=== PATIENT | female | born 1975 | race Caucasian/White ===

== ENCOUNTER → 2023-05-19 | Outpatient (CLI) | payer BC, SELFPAY ==
[2023-05-19 12:25] LABS: Absolute Lymphocyte Count 2.07 X10^3/uL (0.83-4.51); Absolute Neutrophil Count 4.4 X10^3/uL (2.0-7.7); Basophil# 0.05 X10^3/uL; Basophil% 0.7 % (0-1); Eosinophil# 0.33 X10^3/uL; Eosinophils% 4.5 % (0-5); Hematocrit 49.1 % (37-47); Hemoglobin 15.2 g/dL (12.0-15.0); Lymphocyte # 2.07 X10^3/ul (0.83-4.51); Lymphocyte % 27.9 % (19-41); Mean Corpuscular Hgb 29.6 pg (27.0-32.0); Mean Corpuscular Volume 95.5 fL (81-99); Mean Platelet Vol. 11.4 fl (6.2-12.0); Monocyte# 0.51 X10^3/uL; Monocyte% 6.9 % (0-10); NRBC Flagged by Analyzer 0 % (0-5); Neutrophil % 59.3 % (47-70); Platelet Count 224 K/mm3 (150-450); RBC Distribution Width CV 12.5 % (11.6-14.6); RBC Distribution Width SD 43.8 fl (35.1-43.9); Red Blood Count 5.14 M/mm3 (4.2-5.4); White Blood Count 7.4 K/mm3 (4.4-11.0)
[2023-05-19 13:05] LABS: ALB/GLOB Ratio 0.8 RATIO (0.9-2.4); AST(SGOT) 29 U/L (15-37); Alanine Aminotransfer ALT/SGPT 44 U/L (13-56); Albumin, Serum 3.2 g/dL (3.2-5.0); Alkaline Phosphatase 88 U/L (45-117); Anion Gap 4 (5-15); BUN 17 mg/dL (7-18); Calcium,Total 8.8 mg/dL (8.5-10.1); Chloride 113 mmol/L (98-107); EST Glomerular Filtration Rate 72 mL/min (>60); Est Glom Filt Rate - Afr Amer 87 mL/min (>60); Ferritin 77 ng/mL (8-252); Globulin 3.8 g/dL (2.2-4.2); Glucose 106 mg/dL (74-106); Iron 54 ug/dL (50-170); Iron Binding Capacity,Total 277 ug/dL (250-450); PERCENT IRON SATURATION 19.5 % (15.0-55.0); Potassium 3.7 mmol/L (3.5-5.1); Sodium Level 142 mmol/L (136-145); Thyroid Stim Hormone (TSH) 0.61 uIU/mL (0.358-3.74)
== END | disposition home or self-care (01) ==
LOC: MFPLAB 10:10
PROVIDERS: PCP Family Medicine; Visit Provider Family Medicine
DX: E03.9 Hypothyroidism, unspecified (principal); E61.1 Iron deficiency; R06.02 Shortness of breath
CPT/HCPCS: 36415; 80053; 82728; 83540; 83550; 84443; 85025

== ENCOUNTER → 2023-08-25 | Outpatient (CLI) | payer BC, SELFPAY ==
--- NOTE | 2023-08-25 13:18 | RAD_ITS ---
STUDY: X-RAY - ACUTE ABDOMINAL SERIES REASON FOR EXAM: Female, 47 years old. Abdominal pain. Evaluate for constipation. TECHNIQUE: Single view of the chest. Supine, and erect view(s) of the abdomen were obtained. COMPARISON: None. FINDINGS: The lungs are clear and expanded. Normal size heart. Normal mediastinum and javier. Normal visualized pulmonary arteries. Normal visualized aortic arch and descending thoracic aorta. Normal bowel gas pattern with air seen to the rectosigmoid. Moderate to marked amount of feces in the colon which may represent constipation. The soft tissue structures of the abdomen and pelvis are unremarkable. Malleable plate and screw fixation of the right acetabulum. RAD/Acute Abdomen Inc Chest IMPRESSION: Moderate to marked amount of feces in the colon which may represent constipation. No acute abnormality. Electronically Signed: Alex Hein MD at 15:36 EST ,
--- NOTE | 2023-08-25 13:22 | RAD_ITS ---
STUDY: X-RAY - LUMBAR SPINE REASON FOR EXAM: Female, 47 years old. Acute back pain. TECHNIQUE: 4 view(s) of the lumbar spine were obtained. COMPARISON: None FINDINGS: Normal lumbar lordosis. No substantial scoliosis. Normal alignment of the vertebrae. Diffuse mild lower thoracic and lumbosacral facet sclerosis. Minimal intervertebral disc space narrowing at T12-L1, L1-L2 and L4-5. Cholecystectomy clips. Malleable plate and screw fixation of the right acetabulum. RAD/L/S Spine Min 4 Views IMPRESSION: Mild diffuse lower thoracic and lumbosacral spondylosis with no acute finding Electronically Signed: Alex Hein MD at 15:35 EST ,
[2023-08-25 15:55] LABS: Absolute Lymphocyte Count 2.75 X10^3/uL (0.83-4.51); Absolute Neutrophil Count 5.1 X10^3/uL (2.0-7.7); Basophil% 1.1 % (0-1); Eosinophil# 0.36 X10^3/uL; Eosinophils% 4.1 % (0-5); Hematocrit 52.9 % (37-47); Hemoglobin 15.9 g/dL (12.0-15.0); Lymphocyte # 2.75 X10^3/ul (0.83-4.51); Mean Corp Hgb Conc 30.1 g/dL (32-36); Mean Corpuscular Hgb 29.7 pg (27.0-32.0); Mean Corpuscular Volume 98.7 fL (81-99); Mean Platelet Vol. 11.2 fl (6.2-12.0); Monocyte# 0.52 X10^3/uL; Monocyte% 5.9 % (0-10); NRBC Flagged by Analyzer 0 % (0-5); Neutrophil # 5.12 X10^3/uL (2.7-7.7); Neutrophil % 57.6 % (47-70); Platelet Count 156 K/mm3 (150-450); RBC Distribution Width CV 12.8 % (11.6-14.6); RBC Distribution Width SD 46.2 fl (35.1-43.9); Red Blood Count 5.36 M/mm3 (4.2-5.4); White Blood Count 8.9 K/mm3 (4.4-11.0)
[2023-08-25 17:08] LABS: ALB/GLOB Ratio 0.8 RATIO (0.9-2.4); AST(SGOT) 27 U/L (15-37); Alanine Aminotransfer ALT/SGPT 42 U/L (13-56); Albumin, Serum 3.3 g/dL (3.2-5.0); Alkaline Phosphatase 111 U/L (45-117); Anion Gap 7 (5-15); BUN 24 mg/dL (7-18); BUN/Creat Ratio 24.4 RATIO (10-20); Calcium,Total 8.8 mg/dL (8.5-10.1); Chloride 113 mmol/L (98-107); Creatinine, Serum 0.98 mg/dL (0.55-1.02); EST Glomerular Filtration Rate 64 mL/min (>60); Est Glom Filt Rate - Afr Amer 78 mL/min (>60); Glucose 88 mg/dL (74-106); Potassium 3.8 mmol/L (3.5-5.1); Protein, Total 7.3 g/dL (6.4-8.2); Sodium Level 141 mmol/L (136-145); Thyroid Stim Hormone (TSH) 1.94 uIU/mL (0.358-3.74)
[2023-09-02 08:11] LABS: Thyroglobulin Antibody < 1.0 IU/mL (0.0-0.9); Thyroid Stim Immunoglob 0.12 IU/L (0.00-0.55)
== END | disposition home or self-care (01) ==
PROVIDERS: PCP Family Medicine; Referring Provider Family Medicine; Visit Provider Family Medicine
DX: R10.813 Right lower quadrant abdominal tenderness (principal); M54.9 Dorsalgia, unspecified; E03.9 Hypothyroidism, unspecified
CPT/HCPCS: 36415; 72110; 74022; 80053; 84443; 84445; 85025; 86800

== ENCOUNTER → 2023-10-28 | Outpatient (CLI) | payer BC, SELFPAY ==
--- NOTE | 2023-10-28 12:13 | MRI_ITS ---
STUDY: MRI LUMBAR SPINE WITHOUT CONTRAST REASON FOR EXAM: Female, 47 years old. Low back pain radiates and bilateral hips and unable to stand or sit for long. Numbness begins in the left side to knee and ankle. TECHNIQUE: Standardized fat and water weighted pulse sequences were obtained in the sagittal and axial planes. COMPARISON: Lumbar spine radiographs 08/25/2023. FINDINGS: T11-T12 and T12-L1: (Sagittal only). Normal endplates. Normal disc height, hydration and morphology. No ventral extradural defects. Normal central canal and bilateral intervertebral neural foramina. Normal lumbar lordosis. There is no substantial scoliosis. Normal conus medullaris that terminates at the L1-L2 disc space level. L1-2: Normal endplates. Minimal disc space height narrowing. Prominent ventral extradural defect due to posterior bulging annulus. Normal facet joints. Normal central canal and bilateral lateral recesses. Normal bilateral intervertebral neural foramina. L2-3: Normal endplates. Normal disc height, hydration and morphology. Normal bilateral facet joints. Normal central canal and bilateral lateral recesses. Normal bilateral intervertebral neural foramina. L3-4: Normal endplates. Normal disc height, hydration and morphology. Normal bilateral facet joints. Normal central canal and bilateral lateral recesses. Normal bilateral intervertebral neural foramina. L4-5: Normal endplates. Normal disc height, hydration and morphology. Normal bilateral facet joints. Normal central canal and bilateral lateral recesses. Normal bilateral intervertebral neural foramina. L5-S1: Normal endplates. Minimal disc space height narrowing with disc hydration. Annulus without ventral extradural defect due to presence of ventral epidural fat. Normal facet joints. Normal central canal and bilateral lateral recesses. Normal bilateral intervertebral neural foramina. Normal visualized sacral ala. Normal visualized paraspinous soft tissue structures. MRI/Spine Lumbar (Routine) IMPRESSION: 1. No MRI evidence of lumbar extruded disc fragment, disc protrusion, spinal stenosis or nerve root displacement. 2. No MRI evidence of recent or remote fractures of the lumbar spine. 3. Small L1-2 posterior bulging annulus. Electronically Signed: David Lomeli MD at 14:48 EST ,
--- OUTSIDE RECORDS SUMMARY | 2023-10-28 12:29 | XMS RPT_ITS | CCD ---
Author Name Unknown Address [address] [place] [address] Organization [facility] Care Team Providers Care Manufacturing Lab Technician Name Role Phone Ashley Varma PA-C Unavailable MIRNA HERNANDEZ Unavailable Unavailable Kassidy MENDOZA Unavailable Unavailable CEZAR RAMÍREZ Unavailable Unavailable CEZAR RAMÍREZ Unavailable Unavailable ANTONIO ANGEL Unavailable Unavailable [facility] Unavailable Unavailable Chalo, Marco Primary Care Provider [phone] Marco Isabel MD Primary Care Provider Marco Isabel MD Primary Care Provider Marco Isabel MD Primary Care Provider Marco Isabel MD Primary Care Provider Joel Huston MD Unavailable Marco Isabel MD Primary Care Provider Joel Huston MD Unavailable Marco Isabel MD Primary Care Provider CHALO, CHALON Primary Care Unavailable CHALO, JAYON Attending Unavailable CHALO, CHALON Primary Care Unavailable ERICKA STANLEY Attending Unavailable REICKA STANLEY Referring Unavailable CHALO, CHALON Primary Care Unavailable CHALO, CHALON Primary Care Unavailable CHALO, CHALON Attending Unavailable CHALO, CHALON Referring Unavailable ERICKA STANLEY Attending Unavailable CHALO, CHALON Primary Care Unavailable CHALO, CHALON Primary Care Unavailable LENO TORRES Attending Unavailable CHALO, CHALON Attending Unavailable CHALO, CHALON Primary Care Unavailable MARCO ISABEL Primary Care Unavailable MARCO ISABEL Attending Unavailable MARCO ISABEL Primary Care Unavailable MARCO ISABEL Attending Unavailable Allergies Allergy Classification Reported Allergen(s) Allergy Type Date of Onset Reaction(s) Facility (15 sources) Penicillins Propensity to adverse reactions to drug 0 Swelling, Other (See Comments) [facility] (14 sources) Penicillins Drug Intolerance 0 Swelling, Unknown [facility] (14 sources) Other Propensity to adverse reactions 2 Itching, Swelling, Rash [facility] NEGATED: Highlighted row has been ruled out! (6 sources) Other Propensity to adverse reactions 2 Itching, Swelling, Rash [facility] Medications Current Medications Medication Drug Class(es) Dates Sig (Normalized) Sig (Original) acetaminophen 325 mg / HYDROcodone bitartrate 5 mg oral tablet (4 sources) Opioid Agonist Start: 02-12-2023 End: 02-15-2023 take 1 tablet by mouth every six hours as needed for pain HYDROcodone-acetam inophen ([place]) 5-325 MG tablet Indications: Right rotator cuff tendinitis , Fibromyalgia , Acute midline low back pain with bilateral sciatica Take 1 tablet by mouth every 6 hours as needed for moderate pain (4-6) for up to 3 days. 12 tablet 0 02/12/2023 02/15/2023 Active amitriptyline hydrochloride 25 mg oral tablet (3 sources) Tricyclic Antidepressant Start: 08-08-2021 End: 08-18-2021 take 2 tablets by mouth once daily as needed for pain, then take 1 tablet by mouth at bedtime as needed for pain amitriptyline (ELAVIL) 25 MG tablet Indications: Fibromyalgia Take 2 tablets by mouth nightly as needed for Pain Take 1 tablet by mouth at bedtime 20 tablet 0 08/08/2021 08/18/2021 Active Completed/Discontinued Medications Medication Drug Class(es) Dates Sig (Normalized) Sig (Original) [id number] 200 actuat albuterol 0.09 mg/actuat metered dose inhaler (20 sources) beta2-Adrenergic Agonist Start: 02-03-2023 End: 07-16-2023 take 2 puff(s) by inhalation every six hours as needed albuterol 108 (90 Base) MCG/ACT inhaler Inhale 2 puffs every 6 hours as needed for shortness of breath. 1 each 1 02/03/2023 07/16/2023 Discontinued (Therapy completed) Problems Active Problems Problem Classification Problem Date Documented Da te Episodic/Chronic Asthma (14 sources) Mild intermittent asthma; Translations: [Mild intermittent asthma, uncomplicated] Onset: 06-06-2022 07-19-2022 Chronic E Codes: Fall (2 sources) Fall Onset: 02-10-2023 Headache; including migraine (20 sources) Migraine without aura, not refractory ; Translations: [Migraine without aura, not intractable, without status migrainosus] Onset: 05-07-2021 05-07-2021 Chronic Nutritional deficiencies (20 sources) Vitamin D deficiency; Translations: [Vitamin D deficiency, unspecified] Onset: 05-07-2021 05-07-2021 Chronic Nutritional deficiencies (19 sources) Deficiency of multiple nutrient elements; Translations: [Deficiency of multiple nutrient elements] Onset: 09-05-2022 Episodic Other connective tissue disease (1 source) Biceps tendinitis; Translations: [Bicipital tendinitis, left shoulder] Onset: 02-16-2018 02-16-2018 Episodic Other connective tissue disease (1 source) Tendinitis of right rotator cuff; Translations: [Other shoulder lesions, right shoulder] Episodic Other gastrointestinal disorders (17 sources) Intestinal malabsorption; Translations: [Intestinal malabsorption, unspecified] Onset: 09-05-2022 Chronic Other gastrointestinal disorders (2 sources) Intestinal malabsorption, unspecified; Translations: [Intestinal malabsorption, unspecified] Onset: 09-05-2022 Chronic Other hematologic conditions (3 sources) Abnormality of albumin; Translations: [Other nonspecific findings on examination of blood] 09-01-2023 Episodic Other inflammatory condition of skin (2 sources) Intertrigo; Translations: [Erythema intertrigo] Episodic Other lower respiratory disease (1 source) Productive cough ; Translations: [Cough] Episodic Other nervous system disorders (2 sources) Other chronic pain; Translations: [Other chronic pain] Onset: 02-12-2023 Chronic Other non-traumatic joint disorders (1 source) Ankle pain; Translations: [Pain in left ankle and joints of left foot] Episodic Other non-traumatic joint disorders (3 sources) Hip pain; Translations: [Pain in right hip] Episodic Other nutritional; endocrine; and metabolic disorders (20 sources) Morbid obesity; Translations: [Morbid (severe) obesity due to excess calories] Onset: 11-14-2021 11-14-2021 Chronic Other nutritional; endocrine; and metabolic disorders (20 sources) Body mass index 40+ - severely obese; Translations: [Morbid (severe) obesity due to excess calories] Onset: 09-03-2022 Resolved: 12-30-2022 Chronic Other nutritional; endocrine; and metabolic disorders (2 sources) Obesity caused by energy imbalance; Translations: [Other obesity due to excess calories] 07-16-2023 Chronic Other nutritional; endocrine; and metabolic disorders (2 sources) Other obesity due to excess calories; Translations: [Other obesity due to excess calories] Onset: 08-31-2023 Chronic Other nutritional; endocrine; and metabolic disorders (2 sources) Body mass index (BMI) 33.0-33.9, adult; Translations: [Body mass index (BMI) 33.0-33.9, adult] Onset: 08-31-2023 Chronic Other nutritional; endocrine; and metabolic disorders (2 sources) Morbid (severe) obesity due to excess calories; Translations: [Morbid (severe) obesity due to excess calories (HCC)] Onset: 10-07-2022 Chronic Other nutritional; endocrine; and metabolic disorders (2 sources) Body mass index (BMI) 40.0-44.9, adult; Translations: [Body mass index (BMI) 40.0-44.9, adult (HCC)] Onset: 10-07-2022 Chronic Other nutritional; endocrine; and metabolic disorders (1 source) History of iron deficiency; Translations: [Personal history of other endocrine, nutritional and metabolic disease] Episodic Residual codes; unclassified (20 sources) Obstructive sleep apnea syndrome; Translations: [Obstructive sleep apnea (adult) (pediatric)] Onset: 11-19-2021 11-19-2021 Chronic Residual codes; unclassified (2 sources) Obstructive sleep apnea (adult) (pediatric); Translations: [Obstructive sleep apnea (adult) (pediatric)] Onset: 07-19-2022 Chronic Thyroid disorders (20 sources) Acquired hypothyroidism; Translations: [Hypothyroidism, unspecified] Onset: 11-19-2021 Chronic Unclassified (1 source) Unknown / UNK(Unknown) Onset: 04-06-2017 Unclassified (1 source) Acute cough; Translations: [Acute cough] Onset: 10-29-2022 Past or Other Problems Problem Classification Problem Date Documented Da te Episodic/Chronic Abdominal pain (15 sources) Right upper quadrant pain; Translations: [Right upper quadrant pain] Onset: 05-07-2021 Resolved: 03-14-2022 05-07-2021 Episodic Coma; stupor; and brain damage (20 sources) Daytime somnolence; Translations: [Somnolence] Onset: 11-19-2021 11-19-2021 Episodic E Codes: Fall (3 sources) Fall; Translations: [Unspecified fall, initial encounter] Onset: 02-12-2023 Episodic Headache; including migraine (20 sources) Headache; Translations: [Headache] Onset: 05-07-2021 05-07-2021 Episodic Inflammatory diseases of female pelvic organs (2 sources) Cyst of Bartholin's gland; Translations: [CYST OF BARTHOLIN'S GLAND] Onset: 04-03-2017 Episodic Malaise and fatigue (4 sources) Fatigue; Translations: [Other fatigue] Onset: 07-16-2023 07-16-2023 Episodic Miscellaneous mental health disorders (20 sources) Acute insomnia; Translations: [Adjustment insomnia] Onset: 08-27-2021 08-27-2021 Episodic Other connective tissue disease (20 sources) Fibromyalgia; Translations: [Fibromyalgia] Onset: 05-07-2021 05-07-2021 Episodic Other connective tissue disease (2 sources) Other shoulder lesions, right shoulder; Translations: [Other shoulder lesions, right shoulder] Onset: 02-12-2023 Episodic Other connective tissue disease (1 source) Fibromyalgia; Translations: [Fibromyalgia] Onset: 07-19-2022 Episodic Other non-traumatic joint disorders (5 sources) Pain in right knee; Translations: [Pain in joint, lower leg] Onset: 02-12-2023 Episodic Other non-traumatic joint disorders (2 sources) Pain in right hip; Translations: [Pain in right hip] Onset: 02-12-2023 Episodic Other non-traumatic joint disorders (2 sources) Pain in left hip; Translations: [Pain in left hip] Onset: 02-12-2023 Episodic Other non-traumatic joint disorders (2 sources) Pain in left knee; Translations: [Pain in left knee] Onset: 02-12-2023 Episodic Other upper respiratory disease (2 sources) Other specified disorders of nose and nasal sinuses; Translations: [Other specified disorders of nose and nasal sinuses] Onset: 10-29-2022 Episodic Other upper respiratory infections (4 sources) Acute upper respiratory infection, unspecified; Translations: [Acute pharyngitis, unspecified] Onset: 10-29-2022 Episodic Spondylosis; intervertebral disc disorders; other back problems (20 sources) Radiculopathy, cervical region; Translations: [Backache] Onset: 02-16-2018 02-16-2018 Episodic Unclassified (1 source) Problem Unclassified (1 source) VAGINAL PAIN, FEVER, SOB //NO DX Onset: 04-06-2017 Unclassified (1 source) Acute cough; Translations: [Acute cough] Onset: 10-29-2022 Results Test Name Value Interpretation Reference Range Facil ity Vital Signs Date Time Vital Sign Value Performing Clinician Faci lity 07-16-2023 13:29-0400 Body height 174.6 cm Ericka Stanley DIRECTOR OF LABOR AND DELIVERY Work Phone: [facility] Encounters Encounter Date Encounter Type Care Provider Facility Start: 08-31-2023 Telephone encounter [address]ahi nance RD Work Phone: [facility] Procedures Date Procedure Procedure Detail Performing Clinician Start: 08-31-2023 Lipid 1996 panel - Serum or Plasma Ericka Stanley DIRECTOR OF LABOR AND DELIVERY Work Phone: Start: 02-12-2023 Radiologic examination knee 1/2 views Marco Isabel MD Work Phone: Start: 10-07-2022 Lipid 1996 panel - Serum or Plasma Ericka Stanley DIRECTOR OF LABOR AND DELIVERY Work Phone: Start: 10-07-2022 Thyrotropin [Units/volume] in Serum or Plasma Ericka Stanley DIRECTOR OF LABOR AND DELIVERY Work Phone: Start: 07-26-2022 History of cholecystectomy History of cholecystectomy Ericka Stanley DIRECTOR OF LABOR AND DELIVERY Work Phone: Start: 02-07-2022 [facility] ENDOSCOPY REPORT Physician Generic Start: 08-10-2021 Assay of ferritin Marco Isabel MD Work Phone: Start: 06-26-2021 Dup-scan xtr veins complete bilateral study Marco Isabel MD Work Phone: Start: 06-22-2021 Radiologic exam chest 2 views Marco Isabel MD Work Phone: Start: 02-26-2021 Radiologic examination ankle 2 views Solo Friedman MD Work Phone: Start: 02-16-2018 End: 02-16-2018 Blood pressure within normal parameters - no follow-up required Ashley Varma PA-C Work Phone: Start: 02-16-2018 End: 02-16-2018 BMI outside of normal parameters - no follow-up plan/reason not given Ashley Varma PA-C Work Phone: Start: 02-16-2018 End: 02-16-2018 Current medications documented Ashley Varma PA-C Work Phone: Start: 02-16-2018 End: 02-16-2018 Drain/inject, joint/bursa Ashley smith PA-C Work Phone: Start: 02-16-2018 End: 02-16-2018 Pain assessment documented as positive - no follow-up/reason not given Ashley Varma PA-C Work Phone: Start: 02-16-2018 End: 02-16-2018 Tobacco non-user Ashley Varma PA-C Work Phone: Plan of Treatment Date Care Activity Detail Author Start: 12-27-2040 Pneumococcal 0-64 years Vaccine (2 of 2 - PPSV23) Pneumococcal 0-64 years Vaccine (2 of 2 - PPSV23) [facility] Start: 2035 RSV Immunization aged 60 or older (1 - 1-dose 60+ series) RSV Immunization aged 60 or older (1 - 1-dose 60+ series) [facility] Start: 08-31-2028 Lipid panel Lipid Panel [facility] Start: 10-07-2027 Lipid panel Lipid Panel [facility] Start: 12-27-2025 Zoster Vaccines (1 of 2) Zoster Vaccines (1 of 2) [facility] Start: 03-03-2024 End: 03-03-2024 Patient encounter procedure 03/03/2024 8:30 AM EDT Office Visit [facility] [address] [place] [id number] Claribel Orourke MD [address] [place] [address] [facility] Start: 12-15-2023 End: 07-16-2024 25-hydroxyvitamin D3 [Mass/volume] in Serum or Plasma Vitamin D Deficiency Screening (Vit D 25) Lab Routine Deficiency of multiple nutrient elements Intestinal malabsorption, unspecified type Hypothyroidism, unspecified type NEL (obstructive sleep apnea) Class 1 obesity due to excess calories with serious comorbidity and body mass index (BMI) of 33.0 to 33.9 in adult Expected: 12/15/2023 (Approximate), Expires: 07/16/2024 [facility] Immunizations Immunization Date Immunization Notes Care Provider Fa cili 08-08-2021 influenza, injectabl e, quadrivalent, preservative free Marco Isabel MD Work Phone: [facility] 08-08-2021 pneumococcal polysaccharide vaccine, 23 valent Marco Isabel MD Work Phone: [facility] Work Phone: 08-08-2021 influenza virus vaccine, unspecified formulation Ericka Stanley NP Work Phone: [facility] 03-05-2021 COVID-19, Pfizer Pur ple top, DILUTE for use, 12+ yrs, 30mcg/0.3mL dose Joel Huston MD Work Phone: [facility] Work Phone: 02-02-2021 COVID-19, Pfizer Pur ple top, DILUTE for use, 12+ yrs, 30mcg/0.3mL dose Joel Huston MD Work Phone: [facility] 08-24-2019 influenza, injectabl e, quadrivalent, preservative free Marco Isabel MD Work Phone: [facility] 11-08-2018 hepatitis A vaccine, adult dosage Marco Isabel MD Work Phone: [facility] Work Phone: 11-08-2018 hepatitis A and hepatitis B vaccine Ericka Stanley DIRECTOR OF LABOR AND DELIVERY Work Phone: [facility] 08-04-2018 influenza, injectabl e, quadrivalent, preservative free Marco Isabel MD Work Phone: [facility] Work Phone: No information available. Angelika Garcia [facility] Work Phone: Payers Date Payer Category Payer Unknown BCBS [place] P PO [id number] 2020-Present [address] [place] [address] [id number] 2019 Unknown ANTHEM BLUE CARD PPO [id number] 2019-Present PPO [id number] 2019 Unknown [id number] 2019 Unknown ANTHEM BLUE CROS S ANTHEM BLUE CROSS [id number] 2019-Present [address] [place] [address] Commercial [id number] 2013 Unknown [id number] Social History Date Type Detail Facility Start: 02-26-2021 End: 07-26-2022 Tobacco smoking status NJIS Never smoker [facility] Start: 02-26-2021 End: 07-26-2022 Tobacco use and exposure Never used [facility] Work Phone: Start: 02-26-2021 Alcohol intake Lifetime non-d rafi (finding) [facility] Start: 02-26-2021 End: 05-07-2021 History SDOH Alcohol Frequency 1 [facility] Start: 1975 Sex Assigned At Not on file C [facility] Start: 11-18-2021 End: 02-12-2023 Exposure to SARS-CoV-2 (event) Not sure [facility] Start: 06-19-2021 End: 07-16-2023 Alcohol intake Current drinker of alcohol (finding) [facility] Work Phone: Start: 05-07-2021 History SDOH Financial 5 [facility] Work Phone: Start: 05-07-2021 History SDOH Transport Med 2 [facility] Work Phone: Start: 05-07-[address] [facility] Work Phone: Exposure to SARS-CoV-2 (event) Yes [facility] Start: 11-19-2021 End: 05-07-2022 Alcohol intake Ex-drinker (finding) [facility] Work Phone: Start: 1975 Sex Assigned At Female S [facility] Start: 08-26-2022 Alcohol Comment once or twice a year [facility] Start: 12-31-2022 End: 07-16-2023 History of Social function [facility] Start: 12-31-2022 End: 07-16-2023 Tobacco use panel [facility] Start: 07-24-2022 Sexual orientation Heterosexual (fin ding) [facility] NEGATED: Highlighted rowStart: 02-16-2018 End: 02-16-2018 Alcohol use Never smoker [facility] Work Phone: NEGATED: Highlighted rowStart: 02-16-2018 End: 02-16-2018 Details of drug misuse behavior DRUG USE No [facility] Work Phone: NEGATED: Highlighted rowStart: 02-16-2018 End: 02-16-2018 Employment detail OCCUPATION#[employer] [facility] Work Phone: NEGATED: Highlighted rowStart: 02-16-2018 End: 02-16-2018 Assertion Never smoker [facility] Work Phone: Medical Equipment Procedure Code Equipment Code Equipment Origin al Text Equipment Identifier Dates Clip Internal Ligaclip Extra Titanium Medium Large L5.5 Mm Ligate Sterile Latex Free Disposable Green - [id number] Start: 09-03-2022 Clinical Notes 01-24-2021 to 09-09-2023 Telephone Encounter - Ericka Stanley NP - 09/09/2023 1:06 PM ESTTelephone Encounter - Ericka Stanley NP - 09/09/2023 1:06 PM ESTTelephone Encounter - Anahi Vasquez RD - 09/09/2023 1:03 PM EST Note Date & Type Note Facility 09-09-2023 Telephone encounter Note Noted. [facility] 09-09-2023 Miscellaneous Notes Noted. RD has made multiple attempts to reach patient regarding low zinc. Patient has noted she has been sick in [employer] message and has had a decreased appetite, so not eating as frequently. RD will await patient response and also discuss in more detail at next OV on 09/15/23. Attempted to call patient regarding low zinc, however went to voicemail. Left message for patient to call back. Labs (08/31/23) Zinc: 53.3 (L) Sending [employer] message to patient. Spoke with patient, she is rescheduled on 09/15 with TB Orders signed. FDT- Please reschedule 12 month POV. Spoke to patient over MyChart regarding low albumin. Patient reports she hurt her back, and it is making her feel too sick to eat. She also reports she has her 12M POP appointment today and needs to reschedule. RD encouraged patient consider staying hydrated and still work on eating small amounts of food frequently to keep energy levels up, as well as help with low albumin. Discussed trying protein shakes as well as work on eating something light every 2-3 hours, such as thai yogurt as an example. Orders pending to recheck lab. Notifying help desk team leader to reschedule appointment. DOS 09/03/2022 LRYGB TB Next OV 09/01/23 for 12M POP Labs (08/31/23) Albumin: 3.4 (L) Total protein: 7.0 (WNL) B1, zinc pending Attempted to call patient regarding labs, however went to voicemail. Left message for patient to call back. Will also send a MyChart message. ----- Message from Ericka Stanley NP sent at 08/31/2023 1:54 PM EST ----- Hi! Low albumin documented in this encounter [facility] 09-09-[address] has made multiple attempts to reach patient regarding low zinc. Patient has noted she has been sick in MyChart message and has had a decreased appetite, so not eating as frequently. RD will await patient response and also discuss in more detail at next OV on 09/15/23. [facility] 09-04-2023 Telephone encounter Note Attempted to call patient regarding low zinc, however went to voicemail. Left message for patient to call back. [facility] 09-04-2023 Miscellaneous Notes Attempted to call patient regarding low zinc, however went to voicemail. Left message for patient to call back. Labs (08/31/23) Zinc: 53.3 (L) Sending [employer] message to patient. Spoke with patient, she is rescheduled on 09/15 with TB Orders signed. FDT- Please reschedule 12 month POV. Spoke to patient over MyChart regarding low albumin. Patient reports she hurt her back, and it is making her feel too sick to eat. She also reports she has her 12M POP appointment today and needs to reschedule. RD encouraged patient consider staying hydrated and still work on eating small amounts of food frequently to keep energy levels up, as well as help with low albumin. Discussed trying protein shakes as well as work on eating something light every 2-3 hours, such as thai yogurt as an example. Orders pending to recheck lab. Notifying help desk team leader to reschedule appointment. DOS 09/03/2022 LRYGB TB Next OV 09/01/23 for 12M POP Labs (08/31/23) Albumin: 3.4 (L) Total protein: 7.0 (WNL) B1, zinc pending Attempted to call patient regarding labs, however went to voicemail. Left message for patient to call back. Will also send a MyChart message. ----- Message from Ericka Stanley NP sent at 08/31/2023 1:54 PM EST ----- Hi! Low albumin documented in this encounter [facility] 09-02-2023 Telephone encounter Note Labs (08/31/23) Zinc: 53.3 (L) Sending MyChart message to patient. [facility] 09-01-2023 Telephone encounter Note Spoke with patient, she is rescheduled on 09/15 with TB [facility] 09-01-2023 Miscellaneous Notes Spoke with patient, she is rescheduled on 09/15 with TB Orders signed. FDT- Please reschedule 12 month POV. Spoke to patient over MyChart regarding low albumin. Patient reports she hurt her back, and it is making her feel too sick to eat. She also reports she has her 12M POP appointment today and needs to reschedule. RD encouraged patient consider staying hydrated and still work on eating small amounts of food frequently to keep energy levels up, as well as help with low albumin. Discussed trying protein shakes as well as work on eating something light every 2-3 hours, such as thai yogurt as an example. Orders pending to recheck lab. Notifying help desk team leader to reschedule appointment. DOS 09/03/2022 LRYGB TB Next OV 09/01/23 for 12M POP Labs (08/31/23) Albumin: 3.4 (L) Total protein: 7.0 (WNL) B1, zinc pending Attempted to call patient regarding labs, however went to [place]. Left message for patient to call back. Will also send a [employer] message. ----- Message from Ericka Stanley NP sent at 08/31/2023 1:54 PM EST ----- Hi! Low albumin documented in this encounter [facility] 09-01-2023 Telephone encounter Note Orders signed. FDT- Please reschedule 12 month POV. [facility] 09-01-2023 Telephone encounter Note Spoke to patient over [employer] regarding low albumin. Patient reports she hurt her back, and it is making her feel too sick to eat. She also reports she has her 12M POP appointment today and needs to reschedule. RD encouraged patient consider staying hydrated and still work on eating small amounts of food frequently to keep energy levels up, as well as help with low albumin. Discussed trying protein shakes as well as work on eating something light every 2-3 hours, such as thai yogurt as an example. Orders pending to recheck lab. Notifying help desk team leader to reschedule appointment. [facility] 08-31-2023 Telephone encounter Note DOS 09/03/2022 LRYGB TB Next OV 09/01/23 for 12M POP Labs (08/31/23) Albumin: 3.4 (L) Total protein: 7.0 (WNL) B1, zinc pending Attempted to call patient regarding labs, however went to voicemail. Left message for patient to call back. Will also send a Filtect message. [facility] 08-31-2023 Telephone encounter Note ----- Message from Ericka Stanley NP sent at 08/31/2023 1:54 PM EST ----- Hi! Low albumin [facility] 07-16-2023 Note Addended by: MARCI POOLE on: 08/31/2023 08:28 AM Modules accepted: [facility] 07-16-2023 Note [facility]ATR[facility] CARE [facility] [place] PROGRESS NOTE POST WEIGHT LOSS SURGERY FOLLOW UP Patient: Jorge Frost Service Date: 07/16/2023 Patient is 7 month(s) s/p RnY Gastric Bypass Today's Metrics: Post-Surgical Weight Loss Date: 07/16/23 Height: 5' 8.75 (174.6 cm) Weight: 223 lb (101 kg) BMI: 33.17 Weight Change: -46.4 lbs Total Weight Change: -98.4 lbs % EBWL: 56% Comments: 7M Pre-op Weight Metrics: Post-op Weight Metrics: %EBWL: % EBWL: 56% Weight Change Since Last Visit: Weight Change: -46.4 lbs Weight Change from Highest Pre-op Weight: Total Weight Change: -98.4 lbs Patient has the following questions: None Reported Pain: Patient rates pain on scale 0-10 as: 0 Exercise Compliance: Exercising: yes If yes: Type: walking Times per week: 7 Min per session: 30 Falls Risk Assessment Patient does not take medications which affect BP or mental status Patient does not have newly prescribed or changed dosage of medications within past 30 days which affect BP or mental status Patient has not fallen in the past 2 months Patient does not demonstrate unsteady gait Patient uses the following ambulatory assistive devices: none Patient states the presence of the following traits which increases risk of fall: none Patient is not on home O2 Labs Completed: no - If NO, patient instructed to get labs drawn today or KRISHAN If YES: Labs completed at [facility]? N/A If yes see Labs Tab Will get lab work done 07/17/2023 Labs completed at Non-[facility] facility? no If yes see Encounters Tab - Orders only - Historical Provider - Date: Completed by: Portia Epps LPN [facility] 07-16-2023 History of Presen t illness Narrative Images from the original note were not included. HPI, PHYSICAL EXAMINATION & PLAN POST-OP HPI: Patient here today for 6 month post-weight loss surgery follow up The patient is feeling fairly well. Denies nausea, vomiting, dysphagia, or any GERD Sx. Currently is on any PPI. Patient states diet and exercise is going well. Currently is eating 65-75 gm/day protein, and is compliant with prescribed multivitamins and supplements. Reports fatigue- may be r/t long shifts. Drinking around 50-60 oz daily. Eating 4-5x daily. Review of Systems Constitutional: Positive for fatigue. Negative for fever. HENT: Negative for congestion, rhinorrhea and trouble swallowing. Respiratory: Negative for cough, chest tightness and shortness of breath. Cardiovascular: Negative for chest pain, palpitations and leg swelling. Gastrointestinal: Negative for abdominal distention, abdominal pain, blood in stool, constipation, diarrhea and nausea. Genitourinary: Negative for dysuria, flank pain, frequency and urgency. Musculoskeletal: Negative for arthralgias, back pain and myalgias. Skin: Negative for color change and rash. Neurological: Negative for light-headedness and headaches. Psychiatric/Behavioral: Negative for dysphoric mood. The patient is not nervous/anxious. Vital signs are stable. Labs were Not completed. All labs were: pended Physical Examination: BP 105/70 Pulse 51 Temp 36.1 C (97 F) Resp 16 Ht 5' 8.75 (1.746 m) Comment: BCC Wt 223 lb (101 kg) BMI 33.17 kg/m General: This patient is awake, alert, and oriented, and is in no apparent distress. Cardiac: Regular rate and rhythm without evidence of murmur. Respiratory: Clear to auscultation bilaterally. Abdomen: Obese, soft, non-tender, non-distended without masses/ No evidence of abdominal hernia / Incisions consistent with previous surgeries. Head and Neck: Obese, normocephalic and atraumatic/soft and supple, no lymphadenopathy or obvious bruits. Extremities: No cyanosis, clubbing or edema/ No calf tenderness/No restrictions of movement, is ambulatory without assistance. Neurological: Intact x 4 extremities, no focal deficits notes. Skin: No rashes or lesions noted. Rectal: Deferred Plan: 1). Discussed stopping PPI with patient. Patient is call if any mentioned symptoms return: persistent nausea all day, epigastric pain, pain radiating under either side of rib cage or pain in the middle of their back that is not improving. 2). Labs: pending 3). Diet and Exercise: RD discussed diet with patient during office visit. 4). Follow up at 12 month office visit with standard labs. 5). Psych concerns: no 6). If patient is a woman of childrearing age- 18-50. We discussed the importance of contraception during the first 12-18 months post op, and we discussed that fertility will increase following the procedure. Advised patient to discuss with her OBGYN regarding contraception. Patient counseled with good understanding verbalized. 7). Weight loss: Post-op Weight Metrics: %EBWL: % EBWL: 56% Weight Change Since Last Visit: Weight Change: -46.4 lbs Weight Change from Highest Pre-op Weight: Total Weight Change: -98.4 lbs 8). NEL- Continue CPAP use at HS. Continue routine follow up with Pulmonology. 9). Fatigue- To have full set of lab work done. Discussed many potential causes for this, including Hypothyroidism, iron deficiency, NEL, etc. Will review labs and make adjustments to supplement regimen if needed. To follow up with Pulmonology to consider retitration study and PCP for TSH monitoring- last TSH in October which was WNL. Orders Placed This Encounter Procedures Zinc These orders are set for an approximate date - they can be drawn up to 3 months prior to the Expected Date on this Req. Please send results to: Marco Isabel MD - [address] [facility] [address] - [phone] And if not done at a [facility] Facility, please send to: [address], [address] Patient Name: Jorge Tatum 1975 Order Created by : Portia Epps LPN Standing Status: Future Number of Occurrences: 1 Standing Expiration Date: 07/16/2024 Folate These orders are set for an approximate date - they can be drawn up to 3 months prior to the Expected Date on this Req. Please send results [facility]: [facility] [address] - [phone] And if not done at a [facility] Facility, please send to: [address], [facility] [place] Patient Name: Jorge Tatum 1975 Order Created by : Portia Epps LPN Standing Status: Future Number of Occurrences: 1 Standing Expiration Date: 07/16/2024 Iron These orders are set for an approximate date - they can be drawn up to 3 months prior to the Expected Date on this Req. Please send results to: MD Deepti Molina [facility] [address] - [phone] And if not done at a [facility] Facility, please send to: [address], [address] Patient Name: Jorge Tatum 1975 Order Created by : Portia Epps LPN Standing Status: Future Number of Occurrences: 1 Standing Expiration Date: 07/16/2024 Ferritin These orders are set for an approximate date - they can be drawn up to 3 months prior to the Expected Date on this Req. Please send results to: MD Deepti Molina [facility] [address] - [phone] And if not done at a [facility] Facility, please send to: [place] [address] Patient Name: Jorge Frost - 1975 Order Created by : Portia Epps LPN Standing Status: Future Number of Occurrences: 1 Standing Expiration Date: 07/16/2024 Magnesium These orders are set for an approximate date - they can be drawn up to 3 months prior to the Expected Date on this Req. Please send results to: Marco Isabel MD - [facility] [address] - [phone] And if not done at a [facility] Facility, please send to: [address], [facility] [place] Patient Name: Jorge Tatum 1975 Order Created by : Portia Epps LPN Standing Status: Future Number of Occurrences: 1 Standing Expiration Date: 07/16/2024 Vitamin D Deficiency Screening (Vit D 25) These orders are set for an approximate date - they can be drawn up to 3 months prior to the Expected Date on this Req. Please send results to: Marco Isabel MD - [facility] [address] - [phone] And if not done at a [facility] Facility, please send to: [place] [address] Patient Name: Jorge Tatum 1975 Order Created by : Portia Epps LPN Standing Status: Future Number of Occurrences: 1 Standing Expiration Date: 07/16/2024 Vitamin B12 These orders are set for an approximate date - they can be drawn up to 3 months prior to the Expected Date on this Req. Please send results to: Marco Isabel MD - [address] [facility] [address]24985 - [phone] And if not done at a [facility] Facility, please send to: [address], [address] Patient Name: Jorge Tatum 1975 Order Created by : Portia Epps LPN Standing Status: Future Number of Occurrences: 1 Standing Expiration Date: 07/16/2024 Vitamin B1, whole blood These orders are set for an approximate date - they can be drawn up to 3 months prior to the Expected Date on this Req. Please send results to: Marco Isabel MD - [facility] [id number] - [phone] And if not done at a [facility] Facility, please send to: [place] [address] Patient Name: Jorge Tatum 1975 Order Created by : Portia Epps LPN Standing Status: Future Number of Occurrences: 1 Standing Expiration Date: 07/16/2024 Lipid panel These orders are set for an approximate date - they can be drawn up to 3 months prior to the Expected Date on this Req. Please send results to: Marco Isabel MD - [address] [facility] [id number] - [phone] And if not done at a [facility] Facility, please send to: [place] [address] Patient Name: Jorge Tatum 1975 Order Created by : Portia Epps LPN Standing Status: Future Number of Occurrences: 1 Standing Expiration Date: 07/16/2024 Comprehensive metabolic panel These orders are set for an approximate date - they can be drawn up to 3 months prior to the Expected Date on this Req. Please send results to: Marco Isabel MD - [address] [facility] [id number] - [phone] And if not done at a [facility] Facility, please send to: [address], [address] Patient Name: Jorge Tatum 1975 Order Created by : Portia Epps LPN Standing Status: Future Number of Occurrences: 1 Standing Expiration Date: 07/16/2024 CBC These orders are set for an approximate date - they can be drawn up to 3 months prior to the Expected Date on this Req. Please send results to: Marco Isabel MD - [address] [facility] [address] - [phone] And if not done at a [facility], please send to: [address], [address] [facility], [address] Patient Name: Jorge Frost - 1975 Order Created by : Portia Epps LPN Standing Status: Future Number of Occurrences: 1 Standing Expiration Date: 07/16/2024 Medications ordered during this encounter: Outpatient Encounter Medications as of 07/16/2023 Medication Sig Dispense Refill clindamycin (Clindagel) 1 % gel Apply to affected area 2 times daily 60 g 3 cyclobenzaprine (Flexeril) 10 MG tablet Take 1 tablet (10 mg) by mouth 3 times daily as needed for muscle spasms. 30 tablet 2 DULoxetine (Cymbalta) [address] capsule Take 1 capsule (60 mg) by mouth 2 times daily. 60 capsule 5 ferrous sulfate 325 (65 Fe) MG EC tablet TAKE ONE TABLET BY MOUTH DAILY (with breakfast) 30 tablet 5 ipratropium (Atrovent) 0.06 % nasal spray Administer 2 sprays into each nostril in the morning and 2 sprays at noon and 2 sprays in the evening and 2 sprays before bedtime. 15 mL 1 levothyroxine (Synthroid, Levoxyl) 200 MCG tablet Take 1 tablet (200 mcg) by mouth every morning. 30 tablet 5 levothyroxine (Synthroid, Levoxyl) 25 MCG tablet Take 1 tablet (25 mcg) by mouth every morning (before breakfast). 30 tablet 5 nystatin (Mycostatin) 718850 UNIT/GM powder Apply 1 application. topically 2 times daily. Apply topically to affected area two times daily. 60 g 2 omeprazole (PriLOSEC) [address] capsule Take 1 capsule (20 mg) by mouth daily. Do not crush or chew. (Patient taking differently: Take 20 mg by mouth daily. Do not crush or chew.) 90 capsule 1 pregabalin (Lyrica) 100 MG capsule Take 1 capsule (100 mg) by mouth 2 times daily. 60 capsule 3 propranolol (Inderal) 20 MG tablet Take 1 tablet (20 mg) by mouth 2 times daily. (Patient taking differently: Take 20 mg by mouth 2 times daily.) 60 tablet 5 Respiratory Therapy Supplies (CareTouch CPAP & BIPAP Hose) misc 8 cm Nightly. topiramate (Topamax) 100 MG tablet Take 1 tablet (100 mg) by mouth 2 times daily. 60 tablet 5 traZODone (Desyrel) 100 MG tablet Take 2.5 tablets (250 mg) by mouth Nightly as needed for sleep. 30 tablet 5 Ubrelvy 50 MG tablet TAKE 1 TABLET BY MOUTH 2 TIMES DAILY NEEDED (1 TABLET AT ONSET OF HEADACHE) SUMAtriptan (Imitrex) 50 MG tablet Take 1 tablet (50 mg) by mouth Once as needed for migraine. May repeat dose once in 2 hours if no relief. Do not exceed 2 doses in 24 hours. (Patient not taking: Reported on 07/16/2023) 9 tablet 5 [DISCONTINUED] albuterol 108 (90 Base) MCG/ACT inhaler Inhale 2 puffs every 6 hours as needed for shortness of breath. 1 each 1 [DISCONTINUED] baclofen (Lioresal) 10 MG tablet Take 1 tablet (10 mg) by mouth 2 times daily. 60 tablet 0 No facility-administered encounter medications on file as of 07/16/2023. Visit Diagnoses: 1. Deficiency of multiple nutrient elements 2. Intestinal malabsorption, unspecified type 3. Hypothyroidism, unspecified type 4. NEL (obstructive sleep apnea) 5. Class 1 obesity due to excess calories with serious comorbidity and body mass index (BMI) of 33.0 to 33.9 in adult Current Medications: Patient's Medications New Prescriptions No medications on file Previous Medications CLINDAMYCIN (CLINDAGEL) 1 % GEL Apply to affected area 2 times daily CYCLOBENZAPRINE (FLEXERIL) 10 MG TABLET Take 1 tablet (10 mg) by mouth 3 times daily as needed for muscle spasms. DULOXETINE (CYMBALTA) [address] CAPSULE Take 1 capsule (60 mg) by mouth 2 times daily. FERROUS SULFATE 325 (65 FE) MG EC TABLET TAKE ONE TABLET BY MOUTH DAILY (with breakfast) IPRATROPIUM (ATROVENT) 0.06 % NASAL SPRAY Administer 2 sprays into each nostril in the morning and 2 sprays at noon and 2 sprays in the evening and 2 sprays before bedtime. LEVOTHYROXINE (SYNTHROID, LEVOXYL) 200 MCG TABLET Take 1 tablet (200 mcg) by mouth every morning. LEVOTHYROXINE (SYNTHROID, LEVOXYL) 25 MCG TABLET Take 1 tablet (25 mcg) by mouth every morning (before breakfast). NYSTATIN (MYCOSTATIN) 528216 UNIT/GM POWDER Apply 1 application. topically 2 times daily. Apply topically to affected area two times daily. OMEPRAZOLE (PRILOSEC) [address] CAPSULE Take 1 capsule (20 mg) by mouth daily. Do not crush or chew. PREGABALIN (LYRICA) 100 MG CAPSULE Take 1 capsule (100 mg) by mouth 2 times daily. PROPRANOLOL (INDERAL) 20 MG TABLET Take 1 tablet (20 mg) by mouth 2 times daily. RESPIRATORY THERAPY SUPPLIES (CARETOUCH CPAP & BIPAP HOSE) MISC 8 cm Nightly. SUMATRIPTAN (IMITREX) 50 MG TABLET Take 1 tablet (50 mg) by mouth Once as needed for migraine. May repeat dose once in 2 hours if no relief. Do not exceed 2 doses in 24 hours. TOPIRAMATE (TOPAMAX) 100 MG TABLET Take 1 tablet (100 mg) by mouth 2 times daily. TRAZODONE (DESYREL) 100 MG TABLET Take 2.5 tablets (250 mg) by mouth Nightly as needed for sleep. UBRELVY 50 MG TABLET TAKE 1 TABLET BY MOUTH 2 TIMES DAILY NEEDED (1 TABLET AT ONSET OF HEADACHE) Modified Medications No medications on file Discontinued Medications ALBUTEROL 108 (90 BASE) MCG/ACT INHALER Inhale 2 puffs every 6 hours as needed for shortness of breath. BACLOFEN (LIORESAL) 10 MG TABLET Take 1 tablet (10 mg) by mouth 2 times daily. [facility] PROGRESS NOTE POST WEIGHT LOSS SURGERY FOLLOW UP Patient: Jorge Frost Service Date: 07/16/2023 Patient is 7 month(s) s/p RnY Gastric Bypass Today's Metrics: Post-Surgical Weight Loss Date: 07/16/23 Height: 5' 8.75 (174.6 cm) Weight: 223 lb (101 kg) BMI: 33.17 Weight Change: -46.4 lbs Total Weight Change: -98.4 lbs % EBWL: 56% Comments: 7M Pre-op Weight Metrics: Post-op Weight Metrics: %EBWL: % EBWL: 56% Weight Change Since Last Visit: Weight Change: -46.4 lbs Weight Change from Highest Pre-op Weight: Total Weight Change: -98.4 lbs Patient has the following questions: None Reported Pain: Patient rates pain on scale 0-10 as: 0 Exercise Compliance: Exercising: yes If yes: Type: walking Times per week: 7 Min per session: 30 Falls Risk Assessment Patient does not take medications which affect BP or mental status Patient does not have newly prescribed or changed dosage of medications within past 30 days which affect BP or mental status Patient has not fallen in the past 2 months Patient does not demonstrate unsteady gait Patient uses the following ambulatory assistive devices: none Patient states the presence of the following traits which increases risk of fall: none Patient is not on home O2 Labs Completed: no - If NO, patient instructed to get labs drawn today or KRISHAN If YES: Labs completed at [facility]? N/A If yes see Labs Tab Will get lab work done 07/17/2023 Labs completed at Non-[facility] facility? no If yes see Encounters Tab - Orders only - Historical Provider - Date: Completed by: Portia Epps LPN [facility] > 6 MONTH POST-OPERATIVE DIETITIAN VISIT Date: 07/16/23 Patient's weight decreased by: 98.4 lbs Patient does consume 5-6 small meals daily Patient s portions are adequate for current diet: -1 cup Protein requirements discussed- currently consuming at least 65 grams protein daily. Current protein sources: eggs, chicken, cottage cheese, yogurt, cheese, salmon, tuna, beans, peanut butter, protein shake, protein bar Recommendations:none Fluid requirements discussed. Current Fluid Intake: 64 oz/day Patient does drink sugar-free, caffeine-free and carbonation-free fluids only. Patient does wait 30 minutes before and after meals to drink Exercise activities discussed. Patient does currently exercise. She was reminded that regular exercise is critical part of a successful outcome following weight loss surgery. (Walking) Behavioral/Emotional changes reviewed. Patient does feel comfortable with changes in eating behaviors and associated emotional changes. She was reminded that psychological counseling is available through the [facility] post-operatively. Recent Nutrient Concerns and Vitamin Supplementation Changes: Pt compliant with vitamin/mineral protocol. Labs N/A-will monitor. Notes/Comments: Pt doing well. Pt encouraged to call/Mychart with questions. Visit completed by: Ashley Bond RD documented in this encounter [facility] 07-16-2023 History of Presen t illness Narrative Images from the original note were not included. HPI, PHYSICAL EXAMINATION & PLAN POST-OP HPI: Patient here today for 6 month post-weight loss surgery follow up The patient is feeling fairly well. Denies nausea, vomiting, dysphagia, or any GERD Sx. Currently is on any PPI. Patient states diet and exercise is going well. Currently is eating 65-75 gm/day protein, and is compliant with prescribed multivitamins and supplements. Reports fatigue- may be r/t long shifts. Drinking around 50-60 oz daily. Eating 4-5x daily. Review of Systems Constitutional: Positive for fatigue. Negative for fever. HENT: Negative for congestion, rhinorrhea and trouble swallowing. Respiratory: Negative for cough, chest tightness and shortness of breath. Cardiovascular: Negative for chest pain, palpitations and leg swelling. Gastrointestinal: Negative for abdominal distention, abdominal pain, blood in stool, constipation, diarrhea and nausea. Genitourinary: Negative for dysuria, flank pain, frequency and urgency. Musculoskeletal: Negative for arthralgias, back pain and myalgias. Skin: Negative for color change and rash. Neurological: Negative for light-headedness and headaches. Psychiatric/Behavioral: Negative for dysphoric mood. The patient is not nervous/anxious. Vital signs are stable. Labs were Not completed. All labs were: pended Physical Examination: BP 105/70 Pulse 51 Temp 36.1 C (97 F) Resp 16 Ht 5' 8.75 (1.746 m) Comment: BCC Wt 223 lb (101 kg) BMI 33.17 kg/m General: This patient is awake, alert, and oriented, and is in no apparent distress. Cardiac: Regular rate and rhythm without evidence of murmur. Respiratory: Clear to auscultation bilaterally. Abdomen: Obese, soft, non-tender, non-distended without masses/ No evidence of abdominal hernia / Incisions consistent with previous surgeries. Head and Neck: Obese, normocephalic and atraumatic/soft and supple, no lymphadenopathy or obvious bruits. Extremities: No cyanosis, clubbing or edema/ No calf tenderness/No restrictions of movement, is ambulatory without assistance. Neurological: Intact x 4 extremities, no focal deficits notes. Skin: No rashes or lesions noted. Rectal: Deferred Plan: 1). Discussed stopping PPI with patient. Patient is call if any mentioned symptoms return: persistent nausea all day, epigastric pain, pain radiating under either side of rib cage or pain in the middle of their back that is not improving. 2). Labs: pending 3). Diet and Exercise: RD discussed diet with patient during office visit. 4). Follow up at 12 month office visit with standard labs. 5). Psych concerns: no 6). If patient is a woman of childrearing age- 18-50. We discussed the importance of contraception during the first 12-18 months post op, and we discussed that fertility will increase following the procedure. Advised patient to discuss with her OBGYN regarding contraception. Patient counseled with good understanding verbalized. 7). Weight loss: Post-op Weight Metrics: %EBWL: % EBWL: 56% Weight Change Since Last Visit: Weight Change: -46.4 lbs Weight Change from Highest Pre-op Weight: Total Weight Change: -98.4 lbs 8). NEL- Continue CPAP use at HS. Continue routine follow up with Pulmonology. 9). Fatigue- To have full set of lab work done. Discussed many potential causes for this, including Hypothyroidism, iron deficiency, NEL, etc. Will review labs and make adjustments to supplement regimen if needed. To follow up with Pulmonology to consider retitration study and PCP for TSH monitoring- last TSH in October which was WNL. Orders Placed This Encounter Procedures Zinc These orders are set for an approximate date - they can be drawn up to 3 months prior to the Expected Date on this Req. Please send results to: Marco Isabel MD - [facility] [id number] - [phone] And if not done at a [facility] Facility, please send to: [address], [address] Patient Name: Jorge Tatum 1975 Order Created by : Portia Epps LPN Standing Status: Future Number of Occurrences: 1 Standing Expiration Date: 07/16/2024 Folate These orders are set for an approximate date - they can be drawn up to 3 months prior to the Expected Date on this Req. Please send results to: Marco Isabel MD - [facility] [id number] - [phone] And if not done at a [facility] Facility, please send to: [address] [address] Patient Name: Jorge Tatum 1975 Order Created by : Portia Epps LPN Standing Status: Future Number of Occurrences: 1 Standing Expiration Date: 07/16/2024 Iron These orders are set for an approximate date - they can be drawn up to 3 months prior to the Expected Date on this Req. Please send results to: Marco Isabel MD - [address] [facility] 812195 - [phone] And if not done at a [facility] Facility, please send to: [address], [address] Patient Name: Jorge Tatum 1975 Order Created by : Portia Epps LPN Standing Status: Future Number of Occurrences: 1 Standing Expiration Date: 07/16/2024 Ferritin These orders are set for an approximate date - they can be drawn up to 3 months prior to the Expected Date on this Req. Please send results to: Marco Isabel MD - [address] [facility] [address] - [phone] And if not done at a [facility] Facility, please send to: [place] [address] Patient Name: Jorge Tatum 1975 Order Created by : Portia Epps LPN Standing Status: Future Number of Occurrences: 1 Standing Expiration Date: 07/16/2024 Magnesium These orders are set for an approximate date - they can be drawn up to 3 months prior to the Expected Date on this Req. Please send results to: Marco Isabel MD - [address] [facility] [id number] - [phone] And if not done at a [facility] Facility, please send to: [place] [address] Patient Name: Jorge Tatum 1975 Order Created by : Portia Epps LPN Standing Status: Future Number of Occurrences: 1 Standing Expiration Date: 07/16/2024 Vitamin D Deficiency Screening (Vit D 25) These orders are set for an approximate date - they can be drawn up to 3 months prior to the Expected Date on this Req. Please send results to: Marco Isabel MD - [address] [facility] [address] - [phone] And if not done at a [facility] Facility, please send to: [place] [address] Patient Name: Jorge Tatum 1975 Order Created by : Portia Epps LPN Standing Status: Future Number of Occurrences: 1 Standing Expiration Date: 07/16/2024 Vitamin B12 These orders are set for an approximate date - they can be drawn up to 3 months prior to the Expected Date on this Req. Please send results to: Marco Isabel MD - [address] [facility] [address] - [phone] And if not done at a [facility] Facility, please send to: [address], [facility] [place]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 daily. 60 g 2 pregabalin (Lyrica) 100 MG capsule Take 1 capsule (100 mg) by mouth in the morning and 1 capsule (100 mg) before bedtime. 60 capsule 2 propranolol (Inderal) 20 MG tablet Take 1 tablet (20 mg) by mouth in the morning and 1 tablet (20 mg) before bedtime. 60 tablet 3 SUMAtriptan (Imitrex) 50 MG tablet Take 1 tablet (50 mg) by mouth Once as needed for migraine. May repeat dose once in 2 hours if no relief. Do not exceed 2 doses in 24 hours. 9 tablet 3 topiramate (Topamax) 100 MG tablet Take 1 tablet (100 mg) by mouth 2 times daily. 60 tablet 3 [DISCONTINUED] DULoxetine (Cymbalta) [address] capsule Take 1 capsule (60 mg) by mouth 2 times daily. Do not crush or chew. 60 capsule 3 [DISCONTINUED] ergocalciferol (Vitamin D-2) 1.25 MG (15769 UT) capsule Take 1 capsule (1.25 mg) by mouth Twice a Week. Wednesdays and Saturdays 8 capsule 2 [DISCONTINUED] nystatin (Mycostatin) 221348 UNIT/ML suspension Swish and spit 5 mL (500,000 Units) in the morning and 5 mL (500,000 Units) at noon and 5 mL (500,000 Units) before bedtime. Swish and spit 5 mLs by mouth three times daily for 10 days.. (Patient not taking: Reported on 12/31/2022) 150 mL 1 [DISCONTINUED] tiZANidine (Zanaflex) 4 MG capsule Take 1 capsule (4 mg) by mouth 3 times daily. 90 capsule 1 No facility-administered encounter medications on file as of 12/31/2022. Visit Diagnoses: 1. NEL (obstructive sleep apnea) 2. Intertrigo 3. Hypothyroidism, unspecified type 4. Deficiency of multiple nutrient elements 5. Intestinal malabsorption, unspecified type 6. Morbid obesity with BMI of 40.0-44.9, adult ([facility]) Current Medications: Patient's Medications New Prescriptions NYSTATIN (MYCOSTATIN) 182881 UNIT/GM POWDER Apply 1 application topically 2 times daily. Apply topically to affected area two times daily. Previous Medications ALBUTEROL SULFATE HFA IN Inhale 2 puffs every 6 hours as needed. BIOTIN PO Take by mouth. CALCIUM CARBONATE (TUMS) 500 MG CHEWABLE TABLET Chew 500 mg in the morning and 500 mg at noon and 500 mg before bedtime. CLINDAMYCIN (CLINDAGEL) 1 % GEL Apply to affected area 2 times daily CYANOCOBALAMIN (VITAMIN B-12) [address] 1 Dose under the tongue daily. CYCLOBENZAPRINE (FLEXERIL) 10 MG TABLET Take 1 tablet (10 mg) by mouth 3 times daily as needed for muscle spasms. DULOXETINE (CYMBALTA) [address] CAPSULE Take 1 capsule by mouth 2 times daily. ERGOCALCIFEROL (VITAMIN D2) 1.25 MG (78092 UT) CAPSULE take 1 capsule by mouth twice a week (wednesdays and saturdays) FERROUS SULFATE 325 (65 FE) MG EC TABLET TAKE ONE TABLET BY MOUTH DAILY (with breakfast) IPRATROPIUM (ATROVENT) 0.06 % NASAL SPRAY Administer 2 sprays into each nostril in the morning and 2 sprays at noon and 2 sprays in the evening and 2 sprays before bedtime. LEVOTHYROXINE (SYNTHROID, LEVOXYL) 100 MCG TABLET Take 25 mcg by mouth every morning (before breakfast). LEVOTHYROXINE (SYNTHROID, LEVOXYL) 200 MCG TABLET Take 1 tablet (200 mcg) by mouth every morning. LEVOTHYROXINE (SYNTHROID, LEVOXYL) 25 MCG TABLET Take 1 tablet (25 mcg) by mouth every morning (before breakfast). OMEPRAZOLE (PRILOSEC) [address] CAPSULE Take 1 capsule (20 mg) by mouth daily. Do not crush or chew. PREGABALIN (LYRICA) 100 MG CAPSULE Take 1 capsule (100 mg) by mouth in the morning and 1 capsule (100 mg) before bedtime. PREGABALIN (LYRICA) 100 MG CAPSULE Take 100 mg by mouth 2 times daily. PROPRANOLOL (INDERAL) 20 MG TABLET Take 1 tablet (20 mg) by mouth in the morning and 1 tablet (20 mg) before bedtime. PROPRANOLOL (INDERAL) 20 MG TABLET Take by mouth. RESPIRATORY THERAPY SUPPLIES (CARETOUCH CPAP & BIPAP HOSE) MISC 8 cm Nightly. SUMATRIPTAN (IMITREX) 50 MG TABLET Take 1 tablet (50 mg) by mouth Once as needed for migraine. May repeat dose once in 2 hours if no relief. Do not exceed 2 doses in 24 hours. TOPIRAMATE (TOPAMAX) 100 MG TABLET Take 1 tablet (100 mg) by mouth 2 times daily. TRAMADOL (ULTRAM) 50 MG TABLET Take 1 tablet (50 mg) by mouth every 6 hours as needed for moderate pain (4-6) for up to 3 days. TRAZODONE (DESYREL) 150 MG TABLET TAKE 1 TABLET BY MOUTH NIGHTLY NEEDED FOR SLEEP UBRELVY 50 MG TABLET TAKE 1 TABLET BY MOUTH 2 TIMES DAILY NEEDED (1 TABLET AT ONSET OF HEADACHE) Modified Medications No medications on file Discontinued Medications NYSTATIN (MYCOSTATIN) 682978 UNIT/ML SUSPENSION Swish and spit 5 mL (500,000 Units) in the morning and 5 mL (500,000 Units) at noon and 5 mL (500,000 Units) before bedtime. Swish and spit 5 mLs by mouth three times daily for 10 days.. TRAZODONE (DESYREL) 100 MG TABLET Take 1 tablet (100 mg) by mouth Nightly as needed for sleep. [facility] PROGRESS NOTE POST WEIGHT LOSS SURGERY FOLLOW UP Patient: Jorge Frost Service Date: 12/31/2022 Patient is 3 month(s) s/p RnY Gastric Bypass Today's Metrics: Post-Surgical Weight Loss Date: 12/31/22 Height: 5' 8.75 (174.6 cm) Weight: 269 lb 6.4 oz (122 kg) BMI: 40.07 Weight Change: -27.8 lbs Total Weight Change: -52 lbs % EBWL: 29% Pre-op Weight Metrics: Post-op Weight Metrics: %EBWL: % EBWL: 29% Weight Change Since Last Visit: Weight Change: -27.8 lbs Weight Change from Highest Pre-op Weight: Total Weight Change: -52 lbs Patient has the following questions: None Reported Pain: Patient rates pain on scale 0-10 as: 1 Exercise Compliance: Exercising: yes If yes: Type: treadmill and cycling Times per week: 3-5 Min per session: 60 Falls Risk Assessment Patient does take medications which affect BP or mental status Patient does not have newly prescribed or changed dosage of medications within past 30 days which affect BP or mental status Patient has not fallen in the past 2 months Patient does not demonstrate unsteady gait Patient uses the following ambulatory assistive devices: none Patient states the presence of the following traits which increases risk of fall: none Patient is not on home O2 Labs Completed: no - If NO, patient instructed to get labs drawn today or KRISHAN If YES: Labs completed at [facility]? no If yes see Labs Tab Labs completed at Non-[facility] facility? N/A If yes see Encounters Tab - Orders only - Historical Provider - Date: Completed by: Italia Welsh [facility] 3 MONTH POST-OPERATIVE DIETITIAN VISIT Date: 12/31/22 Current diet reviewed with patient. Soft and maintenance diets discussed and. handouts provided. Patient's weight decreased by: lbs Patient consumes 5-6 small meals daily: Yes Patient s portions are adequate for current diet: -1 cup Protein requirements discussed- currently consuming 65+ grams of protein daily. Current protein sources: shakes and lean meats Recommendations: na Fluid requirements discussed. Current Fluid Intake: 64+ Patient drinks sugar-free, caffeine-free and carbonation-free fluids only. Patient waits 30 minutes before and after meals to drink Exercise activities discussed. Patient is currently exercising. She was reminded that regular exercise is critical part of a successful outcome following weight loss surgery. Behavioral/Emotional changes reviewed. Patient does feel comfortable with changes in eating behaviors and associated emotional changes. She was reminded that psychological counseling is available through the [facility] post-operatively. The importance of vitamin supplements has been reviewed and the patient is taking the following: -Multivitamin with minerals and iron -Calcium -Vitamin B12 -Vitamin D3 -Other: Recent Nutrient Concerns and Vitamin Supplementation Changes: Taking all vitamins. Labs wnl. Pt can switch to non chewable vitamins at this time. Will change from Calcium carbonate (Tums) to Calcium Citrate 500 mg TID. Notes/Comments: Pt is doing great overall! Pt to call as needed with any issues or concerns that arise. Visit completed by: Laura Guan RD documented in this encounter [facility] 02-07-2022 [facility] Discharg Trang Montilla RN - 02/07/2022 Upper GI Endoscopy: What to expect at home ACTIVITY: DO NOT DRIVE, OPERATE MACHINERY, OR DRINK ANY ALCOHOL TODAY. Avoid making critical decisions, signing legal documents, or performing any activity that requires alertness for the rest of the day. You may be bloated or have gas pains since air was introduced into the stomach for the procedure. You may need to pass the gas throughout the day. You may experience a mild sore throat. You may use an [id number] chloraseptic spray, gargle with warm salt water, or use throat lozenges. Notify your physician if this feeling lasts more than 48 hours. Rest the remainder of the day. You may resume normal activity tomorrow. You may return to work tomorrow. DIET: You may resume a normal diet unless notified or recommended by your physician. You may be eager to eat a large meal after fasting, but it is a good idea to start with light meals and ease into solid foods the first day. (*) If your stomach is upset, try clear liquids and bland, low-fat foods like plain toast or rice. Drink plenty of fluids for the first 24 hours (unless your physician states otherwise). MEDICATION: Resume your normal home medications unless notified or recommended by your physician. If you take blood thinners (such as Coumadin, Eliquis, Plavix, Aspirin, etc.) or anti-inflammatory medications (Advil, Motrin, Aleve, etc.), ask your physician when you may resume these medications. FOLLOW-UP APPOINTMENT: Follow up with or call your physician as needed. When to call for help: Call your doctor IMMEDIATELY or seek medical care if you experience: Severe pain or vomiting Coughing up more than a teaspoon of blood You pass a large amount of tar-like stools Your belly is swollen and firm with severe pain A fever greater than 101 degrees Redness or swelling of arm from the IV site for more than 48 hours Sudden onset of chest pain or shortness of breath If you become extremely dizzy or pass out (lose consciousness) IF YOU ARE UNABLE TO REACH YOUR PHYSICIAN GO TO NEAREST EMERGENCY DEPARTMENT documented in this encounter [facility] Work Phone: 02-07-2022 History of Presen t illness Narrative Patient left arm less swollen, redness has decreased and patient states that her arm is less itchy . She also states that she feels a lot better. VSS, Dr. Foster states ok to discharge patient home. Patient discharged at 1358, patient transported via wheelchair by RN. Discharge instructions given to patient prior to discharge. Patient left arm swollen, red and itchy where disposable BP cuff was. Disposable cuff removed from patient's arm Dr. Huston and Dr. Foster at the bedside. Verbal order given for 50 mg Benadryl PO Stat, and to continue to monitor patient at this time. VSS, BP cuff changed to plastic cuff. Patient's updated on patient status. documented in this encounter [facility] Work Phone: 03-14-2021 Note . MICRO - Microbiology PROCEDURE: Urine Culture [*1] SOURCE: Urine BODY SITE: COLLECTED DATE/TIME: 03/13/2021 08:57 EDT RECEIVED DATE/TIME: 03/13/2021 17:08 EDT START DATE/TIME: 03/13/2021 17:14 EDT FREE TEXT SOURCE: FINAL REPORTS Final Report [] Verified Date/Time/Personnel: 03/14/2021 14:44 EDT 10,000 - 50,000 cfu/ml Group B Beta Hemolytic Strep (Strep agalactiae) Sensitivity testing is not recommended for one of the following reasons: 1. Established susceptibility patterns are available or 2. Interpretative criteria are not available. Performing Locations *1: This test was performed at: [facility], [address] [place] [address], [id number] , [facility] ([place]) [facility] Productive cough Cough documented in this encounter [facility] Work Phone: Evaluation note* Diagnosis Acquired hypothyroidism Unspecified hypothyroidism History of iron deficiency Personal history of diseases of blood and blood-forming organs Vitamin D deficiency Unspecified vitamin D deficiency documented in this encounter [facility] Work Phone: Evaluation note* Diagnosis NEL (obstructive sleep apnea)- Primary Obstructive sleep apnea (adult) (pediatric) Intertrigo Other specified erythematous condition Hypothyroidism, unspecified type Deficiency of multiple nutrient elements Other nutritional deficiency Intestinal malabsorption, unspecified type Morbid obesity with BMI of 40.0-44.9, adult ([facility]) documented in this encounter [facility] note* Diagnosis Back pain, unspecified back location, unspecified back pain laterality, unspecified chronicity- Primary Intertrigo Other specified erythematous condition Chronic pain of both knees Bilateral hip pain Pain in joint, pelvic region and thigh Fibromyalgia Unspecified myalgia and myositis documented in this encounter [facility]* Diagnosis Right rotator cuff tendinitis- Primary Fibromyalgia Unspecified myalgia and myositis Acute midline low back pain with bilateral sciatica Fall, initial encounter documented in this encounter [facility]* Diagnosis Bilateral hip pain Pain in joint, pelvic region and thigh Chronic pain of both knees documented in this encounter [facility]* Diagnosis NEL (obstructive sleep apnea)- Primary Obstructive sleep apnea (adult) (pediatric) Fatigue, unspecified type Deficiency of multiple nutrient elements Other nutritional deficiency Intestinal malabsorption, unspecified type Hypothyroidism, unspecified type Class 1 obesity due to excess calories with serious comorbidity and body mass index (BMI) of 33.0 to 33.9 in adult documented in this encounter [facility]* Diagnosis ENL (obstructive sleep apnea)- Primary Obstructive sleep apnea (adult) (pediatric) Fatigue, unspecified type Deficiency of multiple nutrient elements Other nutritional deficiency Intestinal malabsorption, unspecified type Hypothyroidism, unspecified type Class 1 obesity due to excess calories with serious comorbidity and body mass index (BMI) of 33.0 to 33.9 in adult documented in this encounter [facility] note* Diagnosis Low serum albumin- Primary documented in this encounter [facility] note* Diagnosis Low serum albumin- Primary documented in this encounter [facility] note* Diagnosis Low serum albumin- Primary documented in this encounter [facility] Advance Directives No Advanced Directives Records FoundLatest Code Status on File Code Status Date Activated Date Inactivated Comments Full Code 02/07/2022 11:19 AM Latest Code Status on File Code Status Date Activated Date Inactivated Comments Full Code 02/07/2022 11:19 AM 02/08/2022 2:43 AM Latest Code Status on File Code Status Date Activated Date Inactivated Comments Full Code 09/03/2022 8:25 AM 09/04/2022 5:51 PM Latest Code Status on File Code Status Date Activated Date Inactivated Comments Full Code 09/03/2022 8:25 AM 09/04/2022 5:51 PM Assessments There may be information available, but it has not been provided by the sender. Review of System There may be information available, but it has not been provided by the sender. Family History There may be information available, but it has not been provided by the sender.No Family History Records FoundNo Family History Records FoundNo Family History Records FoundNo Family History Records FoundNo Family History Records FoundNo Family History Records Found Summary Purpose Reason for Referral Specialty Diagnoses / Procedures Referred By Contac t Referred To Contact Physical Therapy Diagnoses Right rotator cuff tendinitis Procedures NM OFFICE/OUTPATIENT [facility] 60-74 MINUTES Marco Isabel MD [address] [place] [address] [facility] [address] [id number] Referral ID Status Reason Start Date Expiration Date Visits Requested Visits Authorized [id number] Pending Review Eval and Treat 02/12/2023 08/11/2023 99 99 Specialty Diagnoses / Procedures Referred By Torito t Referred To Contact Diagnoses Right rotator cuff tendinitis Fibromyalgia Acute midline low back pain with bilateral sciatica Marco Isabel MD [address] [place] [address] Referral ID Status Reason Start Date Expiration Date V isits Requested Visits Authorized [id number] Pending Review 1 1 Additional Source Comments INFORMATION SOURCE (unrecogn ized section and content) DATE CREATED AUTHOR AUTHOR'S ORGANIZ ATION 06/29/2021 [facility] ([place]) DATE CREATED AUTHOR AUTHOR'S ORGANIZ ATION 02/24/2022 [facility] DATE CREATED AUTHOR AUTHOR'S ORGANIZ ATION 06/13/2022 [facility] DATE CREATED AUTHOR AUTHOR'S ORGANIZ ATION 10/10/2023 [facility] DATE CREATED AUTHOR AUTHOR'S ORGANIZ ATION 10/24/2023 [facility] Source Comments (unrecognize d section and content) In the event this informatio n is protected by the Federal Confidentiality of Alcohol and Drug Abuse Patient Records regulations: The Federal rules restrict any use of the information to criminally investigate or prosecute any alcohol or drug abuse patient.[facility] Reason for Visit (unrecogniz ed section and content) Reason Comments Bariatrics Post Op Follow-up 3M Reason Comments Med Refill Reason Comments [facility] Follow-up Reason Onset Date Comments Forms/questionnaires 02/12/2023 Pt calling re her electric being shut off. [facility] faxed forms to office to be filled out, signed and faxed back. Fax # listed on forms, per Patient. Please advise Reason Onset Date Comments Medical Necessity Form 02/17/2023 Reason Comments Bariatrics Post Op Follow-up 7M Reason Onset Date Comments Abnormal Lab 08/31/2023 Low albumin Reason Onset Date Comments Abnormal Lab 08/31/2023 Low albumin, zin c Care Teams (unrecognized sec tion and content) Manufacturing Lab Technician Relationship Specialty [place] [address] [place] [id number] PCP - General Family Medicine 05/07/21 Manufacturing Lab Technician Relationship Specialty [place] [address] [place] [id number] PCP - General Family Medicine 05/07/21 Manufacturing Lab Technician Relationship Specialty Start Date End Date Marco Isabel MD [address] [place] [id number] PCP - General Family Medicine 05/07/21 Manufacturing Lab Technician Relationship Specialty Start Date End Date Marco Isabel MD [address] [place] [id number] PCP - General Family Medicine 05/07/21 Manufacturing Lab Technician Relationship Specialty Start Date End Date Marco Isabel MD [address] [place] [id number] PCP - General Family Medicine 05/07/21 Manufacturing Lab Technician Relationship Specialty Start Date End Date Marco Isabel MD [address] [place] [address] [id number] PCP - General Family Medicine 05/07/21 Manufacturing Lab Technician Relationship Specialty Start Date End Date Marco Isabel MD [address] [place] [address] [phone] PCP - General Family Medicine 05/07/21 Manufacturing Lab Technician Relationship Specialty Start Date End Date Marco Isabel MD [address] [place] [address] [phone] PCP - General Family Medicine 05/07/21 Manufacturing Lab Technician Relationship Specialty Start Date End Date Marco Isabel MD [address] [place] [address] [phone] PCP - General Family Medicine 05/07/21 Manufacturing Lab Technician Relationship Specialty Start Date End Date Marco Isabel MD [address] [place] [address] [id number] PCP - General Family Medicine 05/07/21 Manufacturing Lab Technician Relationship Specialty Start Date End Date Marco Isabel MD [address] [place] [address] [id number] PCP - General Family Medicine 07/22/22 Joel Huston MD [address] [place] [address] [address] [place] [address] Surgeon General Surgery 09/05/22 Manufacturing Lab Technician Relationship Specialty Start Date End Date Marco Isabel MD [address] [place] [address] [id number] PCP - General Family Medicine 07/22/22 Joel Huston MD [address] [place] [address] [address] [place] [address] Surgeon General Surgery 09/05/22 Manufacturing Lab Technician Relationship Specialty Start Date End Date Marco Isabel MD [address] [place] [address] [id number] PCP - General Family Medicine 07/22/22 Joel Huston MD [address] [place] [address] [address] [place] [address] Surgeon General Surgery 09/05/22 Manufacturing Lab Technician Relationship Specialty Start Date End Date Marco Isabel MD [address] [place] [address] [phone] PCP - General Family Medicine 07/22/22 Joel Huston MD [address] [place] [address] 260 [place], [place] [id number] Surgeon General Surgery 09/05/22 Manufacturing Lab Technician Relationship Specialty Start Date End Date Marco Isabel MD [address] [place] [address] [id number] PCP - General Family Medicine 07/22/22 Joel Huston MD [address] [place] [address] 260 [place], [place] [id number] Surgeon General Surgery 09/05/22 Manufacturing Lab Technician Relationship Specialty Start Date End Date Marco Isabel MD [address] [place] [address] [phone] PCP - General Family Medicine 07/22/22 Joel Huston MD [address] [place] [address] 260 [place], [place] [id number] Surgeon General Surgery 09/05/22 Manufacturing Lab Technician Relationship Specialty Start Date End Date Marco Isabel MD [address] [place] [address] [phone] PCP - General Family Medicine 07/22/22 Joel Huston MD [address] [place] [address] 260 [place], [place] [id number] Surgeon General Surgery 09/05/22 Manufacturing Lab Technician Relationship Specialty Start Date End Date Marco Isabel MD [address] [place] [address] [id number] PCP - General Family Medicine 07/22/22 Joel Huston MD [address] [place] [address] 260 [place], [place] [id number] Surgeon General Surgery 09/05/22 Manufacturing Lab Technician Relationship Specialty Start Date End Date Marco Isabel MD PCP - General Family Medicine 07/22/22 Joel Huston MD [address] [place] [address] [address] [place], [place] [id number] Surgeon General Surgery 09/05/22 Manufacturing Lab Technician Relationship Specialty Start Date End Date Marco Isabel MD PCP - General Family Medicine 07/22/22 Joel Huston MD [address] [place] [address] [address] [place], [place] [id number] Surgeon General Surgery 09/05/22 Manufacturing Lab Technician Relationship Specialty Start Date End Date Marco Isabel MD PCP - General Family Medicine 07/22/22 Joel Huston MD [address] [place] [address] [address] [place], [place] [id number] Surgeon General Surgery 09/05/22 Manufacturing Lab Technician Relationship Specialty Start Date End Date Marco Isabel MD PCP - General Family Medicine 07/22/22 Joel Huston MD [address] [place] [address] [address] [place], [place] [id number] Surgeon General Surgery 09/05/22 FOR RECORDS PERTAINING TO PATIENTS WHO ARE OR HAVE BEEN ENROLLED IN A CHEMICAL DEPENDENCY/SUBSTANCEABUSE PROGRAM, SOME INFORMATION MAY BE OMITTED. This clinical summary was aggregated from multiple sources. Caution should be exercised in using it in the provision of clinical care. This summary normalizes information from multiple sources, and as a consequence, information in this document may materially change the coding, format and clinical context of patient data. In addition, data may be omitted in some cases. CLINICAL DECISIONS SHOULD BE BASED ON THE PRIMARY CLINICAL RECORDS. [facility]. provides no warranty or guarantee of the accuracy or completeness of information in this document.
== END | disposition home or self-care (01) ==
PROVIDERS: PCP Family Medicine; Referring Provider Orthopaedic Surgery; Visit Provider Orthopaedic Surgery
DX: M51.26 Other intervertebral disc displacement, lumbar region (principal)
CPT/HCPCS: 72148